=== PATIENT | female | born 1965 | race Caucasian/White ===

== ENCOUNTER 2016-12-19 13:26 | Emergency (ER) | payer OTHER ==
[2016-12-19 14:48] LABS: Hematocrit 31 % (35-47); Hemoglobin 9.4 g/dl (12.0-16.0); Mean Corpuscular HGB Conc 31 g/dl (31-36); Mean Corpuscular Hemoglobin 27 pg (27-31); Mean Corpuscular Volume 87 fL (80-97); Mean Platelet Volume 8 um3 (7.4-10.4); Red Blood Count 3.53 10^6/ul (4.0-5.4); Red Cell Distribution Width 17 % (10.5-15)
[2016-12-19 15:00] LABS: Albumin 4.3 g/dL (3.2-5.2); BUN/Creatinine Ratio 14.1 (8-20); C Reactive Protein 2.18 mg/L (< 5.00); Calcium 9.3 mg/dL (8.6-10.3); EGFR African American 33.1 (>60); EGFR Non-African American 25.7 (>60); Globulin 2.2 g/dL (2-4); Magnesium 2.9 mg/dL (1.9-2.7); Potassium 4.7 mmol/L (3.5-5.0); Total Bilirubin 0.9 mg/dL (0.2-1.0); Total Protein 6.5 g/dL (6.4-8.9)
[2016-12-19 15:02] LABS: Troponin I 0.01 ng/mL (<0.04)
--- NOTE | 2016-12-19 15:51 | RAD ---
Indication: Central chest pain, cough, shortness of breath. Post heart transplant approximately 20 years ago. Comparison: November 27, 2015 chest radiograph and October 11, 2013 CT. Technique: Upright AP 1500 hours Report: Median sternotomy wires and epicardial pacemaker leads. Unchanged cardiomegaly. Unremarkable central pulmonary vasculature. Small dependent LEFT pleural effusion. Atelectasis versus inflammatory infiltrate at the LEFT lung base. Negative for pneumothorax. IMPRESSION: Cardiomegaly without compelling evidence for pulmonary edema. LEFT basilar consolidation may represent atelectasis or pneumonia. Small dependent LEFT pleural effusion.
[2016-12-19 15:55] LABS: TSH (Thyroid Stimulating Horm) 3.36 mcIU/mL (0.34-5.60)
--- NOTE | 2016-12-19 17:39 | ED ---
Tesfaye Jaramillo Adam, scribed for Yonathan Ayala MD on 12/19/16 at 1423 . Shortness of Breath - HPI Summary HPI Summary: Pt is a 51 year old female presenting with SOB. Pt states that last night she woke up from sleep 3 times with SOB and coughing. Upright position alleviates the SOB. She states that her doctor sent her to the ED today because she was visibly short of breath. The pt states that she has not been feeling well for the past 6 months and her kidney function has been reduced. She had a heart transplant 18 years ago and is followed by the transplant center in [place]. She also reports intermittent BLE edema for the past 6 months. She is not on ASA. Pt also reports intermittent CP the past 2 nights that seems to be triggered by recumbent position. She states that the pain is very mild and describes it as a "little tweak." - History of Current Complaint Chief Complaint: EDShortnessOfBreath Time Seen by Provider: 12/19/16 14:10 Hx Obtained From: Patient Onset/Duration: Sudden Onset, Lasting Hours, Still Present Timing: Intermittent Episodes Lasting: - Minutes Current Severity: Moderate Dyspnea At: Rest Aggrevating Factors: Nothing Alleviating Factors: Nothing Associated Signs & Symptoms: Cough (Nonproductive), Chest Pain Unrelated to Cough, Edema - Allergy/Home Medications Allergies/Adverse Reactions: Allergies Allergy/AdvReac Type Severity Reaction Status Date / Time Cyclosporine [From Neoral] Allergy Severe See Comment Verified 11/27/15 09:58 Ethanol [From Neoral] Allergy Severe See Comment Verified 11/27/15 09:58 PMH/Surg Hx/FS Hx/Imm Hx Cardiovascular History: Reports: Other Cardiovascular Problems/Disorders - HEART TRANSPLANT 18 YEARS AGO Psychiatric History: Denies: Hx Eating Disorder, Hx of Violent Episodes Against Others - Cancer History Hx Chemotherapy: Yes - PRE HEART TRANSPLANT Hx Radiation Therapy: No - Surgical History Surgery Procedure, Year, and Place: HEART TRANSPLANT 1997. TONSILECTOMY - Immunization History Date of Tetanus Vaccine: 2005 Date of Influenza Vaccine: Fall 2014 Infectious Disease History: No Infectious Disease History: Denies: Traveled Outside the [place] in Last 30 Days - Family History Known Family History: Positive: Other - Negative: anxiety, depression, alcohol - Social History Occupation: Employed Full-time Lives: With Family - Daughter Alcohol Use: None Hx Substance Use: No Substance Use Type: Reports: None Hx Tobacco Use: No Smoking Status (MU): Never Smoked Tobacco Have You Smoked in the Last Year: No Review of Systems Negative: Fever Positive: Shortness Of Breath, Cough Positive: Edema - BLE All Other Systems Reviewed And Are Negative: Yes Physical Exam Triage Information Reviewed: Yes Vital Signs On Initial Exam: Initial Vitals Temp Pulse Resp BP Pulse Ox 98.4 F 92 16 114/78 97 12/19/16 13:33 12/19/16 13:33 12/19/16 13:33 12/19/16 13:33 12/19/16 13:33 Vital Signs Reviewed: Yes Appearance: Positive: Well-Appearing, No Pain Distress Skin: Positive: Warm, Skin Color Reflects Adequate Perfusion, Dry Head/Face: Positive: Normal Head/Face Inspection Eyes: Positive: EOMI, MARIELENA ENT: Positive: Normal ENT inspection Neck: Positive: Supple, Nontender Respiratory/Lung Sounds: Positive: Breath Sounds Present, Other - Mildly short of breath Cardiovascular: Positive: RRR Abdomen Description: Positive: Nontender, Soft Bowel Sounds: Positive: Present Musculoskeletal: Positive: Strength/ROM Intact, Other - Pedal edema Neurological: Positive: Normal, Sensory/Motor Intact, Alert, Oriented to Person Place, Time Psychiatric: Positive: Affect/Mood Appropriate Diagnostics - Vital Signs Vital Signs Temp Pulse Resp BP Pulse Ox 12/19/16 13:33 98.4 F 92 16 114/78 97 - Laboratory Lab Results: Lab Results 12/19/16 12/19/16 12/19/16 Range/Units 14:35 14:35 14:35 WBC 4.0 (3.5-10.8) 10^3/ul RBC 3.53 L (4.0-5.4) 10^6/ul Hgb 9.4 L (12.0-16.0) g/dl Hct 31 L (35-47) % MCV 87 (80-97) fL MCH 27 (27-31) pg MCHC 31 (31-36) g/dl RDW 17 H (10.5-15) % Plt Count 216 (150-450) 10^3/ul MPV 8 (7.4-10.4) um3 Neut % (Auto) 67.6 (38-83) % Lymph % (Auto) 18.3 L (25-47) % [place] % (Auto) 11.0 H (1-9) % Eos % (Auto) 2.4 (0-6) % Baso % (Auto) 0.7 (0-2) % Absolute Neuts (auto) 2.7 (1.5-7.7) 10^3/ul Absolute Lymphs (auto) 0.7 L (1.0-4.8) 10^3/ul Absolute Monos (auto) 0.4 (0-0.8) 10^3/ul Absolute Eos (auto) 0.1 (0-0.6) 10^3/ul Absolute Basos (auto) 0 (0-0.2) 10^3/ul Absolute Nucleated RBC 0 10^3/ul Nucleated RBC % 0 INR (Anticoag Therapy) 1.06 (0.89-1.11) APTT 31.8 (26.0-36.3) seconds Sodium 140 (133-145) mmol/L Potassium 4.7 (3.5-5.0) mmol/L Chloride 113 H (101-111) mmol/L Carbon Dioxide 21 L (22-32) mmol/L Anion Gap 6 (2-11) mmol/L BUN 29 H (6-24) mg/dL Creatinine 2.05 H (0.51-0.95) mg/dL Est GFR ( Amer) 33.1 (>60) Est GFR (Non-Af Amer) 25.7 (>60) BUN/Creatinine Ratio 14.1 (8-20) Glucose 101 H (70-100) mg/dL Lactic Acid (0.5-2.0) mmol/L Calcium 9.3 (8.6-10.3) mg/dL Magnesium 2.9 H (1.9-2.7) mg/dL Total Bilirubin 0.90 (0.2-1.0) mg/dL AST 17 (13-39) U/L ALT 7 (7-52) U/L Alkaline Phosphatase 50 (34-104) U/L Total Creatine Kinase 35 (10-223) U/L CK-MB (CK-2) 0.8 (0.6-6.3) ng/mL Troponin I 0.01 (<0.04) ng/mL C-Reactive Protein 2.18 (< 5.00) mg/L B-Natriuretic Peptide ( - 100) pg/mL Total Protein 6.5 (6.4-8.9) g/dL Albumin 4.3 (3.2-5.2) g/dL Globulin 2.2 (2-4) g/dL Albumin/Globulin Ratio 2.0 (1-3) Lipase 19 (11.0-82.0) U/L TSH 3.36 (0.34-5.60) mcIU/mL 12/19/16 12/19/16 Range/Units 14:35 14:35 WBC (3.5-10.8) 10^3/ul RBC (4.0-5.4) 10^6/ul Hgb (12.0-16.0) g/dl Hct (35-47) % MCV (80-97) fL MCH (27-31) pg MCHC (31-36) g/dl RDW (10.5-15) % Plt Count (150-450) 10^3/ul MPV (7.4-10.4) um3 Neut % (Auto) (38-83) % Lymph % (Auto) (25-47) % [place] % (Auto) (1-9) % Eos % (Auto) (0-6) % Baso % (Auto) (0-2) % Absolute Neuts (auto) (1.5-7.7) 10^3/ul Absolute Lymphs (auto) (1.0-4.8) 10^3/ul Absolute Monos (auto) (0-0.8) 10^3/ul Absolute Eos (auto) (0-0.6) 10^3/ul Absolute Basos (auto) (0-0.2) 10^3/ul Absolute Nucleated RBC 10^3/ul Nucleated RBC % INR (Anticoag Therapy) (0.89-1.11) APTT (26.0-36.3) seconds Sodium (133-145) mmol/L Potassium (3.5-5.0) mmol/L Chloride (101-111) mmol/L Carbon Dioxide (22-32) mmol/L Anion Gap (2-11) mmol/L BUN (6-24) mg/dL Creatinine (0.51-0.95) mg/dL Est GFR ( Amer) (>60) Est GFR (Non-Af Amer) (>60) BUN/Creatinine Ratio (8-20) Glucose (70-100) mg/dL Lactic Acid 0.6 (0.5-2.0) mmol/L Calcium (8.6-10.3) mg/dL Magnesium (1.9-2.7) mg/dL Total Bilirubin (0.2-1.0) mg/dL AST (13-39) U/L ALT (7-52) U/L Alkaline Phosphatase (34-104) U/L Total Creatine Kinase (10-223) U/L CK-MB (CK-2) (0.6-6.3) ng/mL Troponin I (<0.04) ng/mL C-Reactive Protein (< 5.00) mg/L B-Natriuretic Peptide 623 H ( - 100) pg/mL Total Protein (6.4-8.9) g/dL Albumin (3.2-5.2) g/dL Globulin (2-4) g/dL Albumin/Globulin Ratio (1-3) Lipase (11.0-82.0) U/L TSH (0.34-5.60) mcIU/mL Result Diagrams: 12/19/16 14:35 12/19/16 14:35 Lab Statement: Any lab studies that have been ordered have been reviewed, and results considered in the medical decision making process. - Radiology CXR Radiology Interpretation Completed By: Radiologist - IMPRESSION: Cardiomegaly without compelling evidence for pulmonary edema. LEFT basilar consolidation may represent atelectasis or pneumonia. Small dependent LEFT pleural effusion. - EKG 13:42 Cardiac Rate: NL - 90 BPM EKG Rhythm: Sinus Rhythm - Normal ST Segment: Normal Ectopy: None - Additional Comments Diagnostic Additional Comments: Troponin I - 0.01 Course/Dx - Course Assessment/Plan: DISCUSSED WITH CARDIOLOGY, DR ROBERTS. ADMIT HOSPITALIST STABLE. - Diagnoses Provider Diagnoses: CHF (congestive heart failure), Renal insufficiency Discharge - Discharge Plan Condition: Stable Disposition: ADMITTED TO [facility] documentation as recorded by the Tesfaye gimenez Adam accurately reflects the service I personally performed and the decisions made by me, Yonathan Ayala MD.
[2016-12-19 17:42] VITALS: BP 104/73
[2016-12-19] MEDS ORDERED: Furosemide IV* 10 MG/ML VIAL (40 MG) IV ONE (18:26)
--- NOTE | 2016-12-19 21:56 | CONS ---
CONSULTATION REPORT: DATE OF CONSULT: 12/19/16 - EMERGENCY DEPT. REQUESTING PHYSICIAN FOR CONSULT: Dr. Ayala. REASON FOR MEDICAL CONSULTATION: Evaluation for admission. HISTORY OF PRESENT ILLNESS: Ms. Nelson is a 51-year-old female patient with a complex medical history. 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 She comes in today stating that since February, she has had a steady decline in her breathing. She has noticed her activity level has declined over the last several months, but acutely, in the last 3 days, she has had more shortness of breath. She said she cannot lie flat. She says her stomach has gotten more tense and stiff at times and she says her legs have swelled up as well and she notices that with minimal exertion, she has been more short of breath. She denies any recent fevers or chills. She does state that she had URI symptoms or common cold back in July. She denied any fevers or chills or any abdominal discomfort or any nausea, vomiting, or any dysurias. She states that she was concerned today and came in to the ER and she also does admit that her creatinine function has been getting worse as well. She says her last echo was about a month ago. She says her ejection fraction may have been around 55%, she is unsure. She was evaluated in the ER and we were asked to evaluate for admission. PAST MEDICAL HISTORY: Significant for: 1. Panda/ cardiomyopathy. 2. Congestive heart failure. 3. Peptic ulcer disease. 4. Graves. 5. Transplant rejections twice. SURGICAL HISTORY: 1. She has had a heart transplant. 2. Craniotomy. HOME MEDICATIONS: According to the list that she provided us include: 1. Prograf 2 mg in the night, 3 mg in the morning. 2. Omeprazole 20 mg daily. 3. Floradix 1 liquid p.o. b.i.d. 4. Pepcid 20 mg daily. 5. Fergon 325 mg daily. 6. Metoprolol 75 mg p.o. daily. 7. Mag ox 800 mg p.o. daily. 8. Lasix 40 mg daily as needed. 9. Citracal 2 tabs p.o. daily. 10. vitamin 1 tablet daily. 11. CellCept 750 mg p.o. b.i.d. 12. Pravachol 20 mg daily at bedtime. ALLERGIES TO MEDICATIONS: Include CYCLOSPORINE and ETHANOL. FAMILY HISTORY: Reviewed and noncontributory. She says her family does not have any history of heart disease. SOCIAL HISTORY: She does not smoke. She does not drink. Surrogate decision maker is her daughter. REVIEW OF SYSTEMS: There is no documented fever. She does not know if she has had a significant weight change, but she does state that she has been swelling. She denies having any double vision. No ear discharge. There is no rhinorrhea. No sore throat. No thyroid enlargement. She denies having any chest pain. There is no orthopnea. No nocturnal dyspnea. There is no abdominal pain. No nausea. No vomiting. No dysuria. No frequency. No loss of consciousness. No pruritus and no skin ulcerations. Review of 14 systems completed, all others negative. PHYSICAL EXAM: Vital Signs: Blood pressure 104/73, pulse 89, respirations 20, O2 sat 98%, temperature 98.4. General: At this time, Ms. Nelson is a 51-year -old female patient. She does appear to be in a mild amount of respiratory distress. HEENT: Head: Atraumatic and normocephalic. Eyes: EOMs intact. Sclerae anicteric and not pale. Throat: Oral mucosa appears to be moist. No oropharyngeal erythema. Neck: Supple. Heart: Sounds S1, S2. Regular rate and rhythm. No murmurs, rubs, or gallops. Lungs: She had crackles in the bases with equal diaphragmatic expansion. Abdomen: Soft, flat. There did appear to have some ascites. Extremities: Pulses were 2+ throughout. She did have +1 to 2 pitting edema bilaterally. Neurologically, she is awake, alert, and oriented x3. No gross focal deficits. Skin: Intact. DIAGNOSTIC STUDIES/LAB DATA: Today revealed WBC 4.0, RBC of 3.53, hemoglobin 9.4, hematocrit 31, platelet count of 216. The INR was 1.06, PTT of 31.8. Sodium 140, potassium 4.7, chloride of 113, bicarb 21, BUN 29, creatinine is 2.05. It appears that since May last year, her baseline was right around 1.3. Now, it is 2.05 and it has been this high since September. Glucose 101. Lactic 0.6. Calcium of 9.3. Magnesium 2.9. Total bili 0.9, AST 10, ALT 7, alk phos 50. CK 35, CK-MB 0.8, troponin 0.01. BNP of 623. Albumin 4.3. Lipase 19. TSH of 3.36. She had a chest x-ray obtained today which when I reviewed, there did appear to be cardiomegaly. Radiology read it as cardiomegaly without compelling evidence for pulmonary edema, left basilar consolidation, may represent atelectasis or pneumonia, small left pleural effusion. EKG showed a normal sinus rhythm, rate of 90. She had ST depression in V6 only. Appears to be similar to her previous EKG. Old medical records were reviewed. ASSESSMENT AND PLAN: Ms. Nelson is a 51-year-old female patient with a very complex medical history coming in to the ER today with complaints of orthopnea, dyspnea on exertion, ascites, in addition to this leg swelling. We were asked to evaluate for admission. Recommendations at this point are for: Decompensated congestive heart failure with history of heart transplant and worsening renal failure: I discussed the case at length with Dr. Ledezma and I also discussed the case with my attending, Dr. Reeves, and the plan is to transfer the patient as she most likely is going to require tertiary care center. Will probably need a myocardial biopsy and she will be seen by her transplant team as she is going to need probably advanced heart failure therapies and modalities which we do not offer at this hospital. I did call [facility] and touched base with them. Dr. Couch accepted. They had asked us to keep the patient overnight in the hospital here; however, on discussion with my attending, it was felt that we do not have cardiology backup here and it was felt that she would be better served transferred from ER to ER. I did discuss this with Dr. Ayala who took the case back to his care and was going to be transferring the patient. I did discuss the case with the transfer center. They said they would notify their ED of the incoming patient with Dr. Couch accepting and I discussed at length with the patient that she most likely will be waiting in the emergency department for bed overnight, but we still feel that this was a better plan of care than keeping her here in case she decompensates, we do not have treatment modality for her that she may need. She did accept this plan of care. I discussed with my attending. They are in agreement. SIMEON SHELTON NP CC: Dr. Elias * [id number]/CPS #: [id number] NANCY
== END 2016-12-19 19:16 | disposition short-term general hospital (02) ==
LOC: ED 13:26 → UNDOADMOB 16:37 → MEDTELE 16:37 → ED 19:16
DX: I50.9 Heart failure, unspecified (principal); N28.9 Disorder of kidney and ureter, unspecified; R05 Cough; R07.9 Chest pain, unspecified; R60.9 Edema, unspecified; R06.02 Shortness of breath
CPT/HCPCS: 36415; 71010; 80053; 82550; 82553; 83605; 83690; 83735; 83880; 84443; 84484; 85025; 85610; 85730; 86140; 93005; 96374; 99283; J1940